=== PATIENT | female | born 1990 | race Caucasian/White ===

== ENCOUNTER 2021-11-13 13:07 | Emergency (ER) | payer MEDICAID ==
[~2021-11-13] VITALS: Ht 157.5 cm; Wt 72.6 kg
--- NOTE | 2021-11-13 13:34 | NUR ---
DR GARCIA AT BEDSIDE FOR EVAL.
[2021-11-13] MEDS ORDERED: ALBU18HF2 INH (13:42)
[2021-11-13] MEDS ORDERED: PRED50TA PO (13:42)
[2021-11-13] MEDS ORDERED: predniSONE 50 MG TABLET PO ONE (13:45)
[2021-11-13] MEDS ORDERED: predniSONE 50 MG TABLET ONE (13:56)
--- NOTE | 2021-11-13 14:04 | NUR ---
PCXR DONE; RESULTS DISCUSSED BY DR GARCIA WITH PT AND MOTHER. COPY REQUESTED.
[2021-11-13 14:17] VITALS: BP 120/84
== END 2021-11-13 14:18 | disposition home or self-care (01) ==
LOC: ER 13:07
DX: J45.909 Unspecified asthma, uncomplicated (principal); Z86.16 Personal history of COVID-19; F79 Unspecified intellectual disabilities
CPT/HCPCS: 71045; 99283; J7512; A4663

== ENCOUNTER 2022-04-19 16:37 | Emergency (ER) | payer MEDICAID, OTHER ==
[~2022-04-19] VITALS: Ht 157.5 cm; Wt 77.1 kg
[~2022-04-19 16:37] MED LIST: ALBU18HF2 INH; PRED50TA PO
[2022-04-19] MEDS ORDERED: PRED50TA PO (16:56)
[2022-04-19] MEDS ORDERED: DIPH25CA83 PO (16:56)
[2022-04-19] MEDS ORDERED: FAMO40TA71 PO (16:56)
--- NOTE | 2022-04-19 16:58 | NUR ---
Patient discharged to home in stable condition with steady gait. Written and verbal after care instructions given to patient and mother. Patient and mother verbalized understanding and compliance of instructions. Stressed follow up with primary doctor, allergologist/reference assistant or return to ER for worsening s/s.
== END 2022-04-19 16:59 | disposition home or self-care (01) ==
LOC: ER 16:57
DX: L50.9 Urticaria, unspecified (principal); Z86.16 Personal history of COVID-19
CPT/HCPCS: A4663